=== PATIENT | female | born 1965 | race Caucasian/White ===

== ENCOUNTER → 2016-12-20 | Outpatient (CLI) | payer OTHER | LOC: BRMIMAGING 15:00 | PROVIDERS: ATTEND Family Medicine | DX: Z12.31 Encounter for screening mammogram for malignant neoplasm of breast (principal); Z80.3 Family history of malignant neoplasm of breast | CPT/HCPCS: G0202 ==

== ENCOUNTER → 2016-12-27 | Outpatient (CLI) | payer OTHER | LOC: BRMIMAGING 10:03 | PROVIDERS: ATTEND Family Medicine | DX: R59.9 Enlarged lymph nodes, unspecified (principal); Z80.3 Family history of malignant neoplasm of breast | CPT/HCPCS: 76641-PO ==

== ENCOUNTER → 2017-03-11 | Outpatient (CLI) | payer OTHER ==
[~2017-03-11] MED LIST: GADOBUTROL 10 ML VIAL IVP ONE
== END ==
LOC: FIMAGING 07:56
DX: Z12.39 Encounter for other screening for malignant neoplasm of breast (principal); R92.8 Other abnormal and inconclusive findings on diagnostic imaging of breast
CPT/HCPCS: 0159T; A9585; C8908

== ENCOUNTER → 2017-09-02 | Outpatient (CLI) | payer OTHER | LOC: BRMIMAGING 09:08 | DX: R92.8 Other abnormal and inconclusive findings on diagnostic imaging of breast (principal) | CPT/HCPCS: 76641-PO ==